=== PATIENT | male | born 1970 | race Caucasian/White ===

== ENCOUNTER 2020-08-04 09:00 | Inpatient (IN) | payer BC, SELFPAY ==
[2020-08-04 10:03] LABS: Absolute Lymphocytes (CBC) 1.2 K/uL (0.7-4.9); Basophils % 0.2 % (0-1.3); Hematocrit 48.2 % (39.6-49.0); Lymphocytes % 10.4 % (15.3-44.8); MPV 7.9 fL (7.6-11.3); RBC Red Blood Cell Count 5.68 M/uL (4.33-5.43)
[2020-08-04 10:13] LABS: Protime INR 1.08
--- NOTE | 2020-08-04 10:17 | RAD REPORT ---
EXAM DESCRIPTION: RAD - Chest Single View - 08/04/2020 9:57 am CLINICAL HISTORY: DYSPNEA Chest pain. COMPARISON: No comparisons FINDINGS: Portable technique limits examination quality. Mild bilateral interstitial lung opacities are present which may represent bronchitis/infection or mi ld pulmonary edema. The heart is upper limit of normal in size. No displaced fractures.
[2020-08-04 10:42] LABS: ALT/SGPT 88 U/L (12-78); AST/SGOT 56 U/L (15-37); Albumin 3.2 g/dL (3.4-5.0); Alkaline Phosphatase 48 U/L (45-117); BUN Blood Urea Nitrogen 19 mg/dL (7-18); Bicarbonate 27 mmol/L (21-32); Bilirubin Direct 0.2 mg/dL (0-0.2); Bilirubin Total 0.8 mg/dL (0.2-1.0); Ferritin 2168.2 ng/mL (26-388); Glucose Level 108 mg/dL (74-106); Lipase 139 U/L (73-393); Protein, Total 8.2 g/dL (6.4-8.2); Sodium Level 133 mmol/L (136-145); Troponin (Emerg Dept Use Only) < 0.02 ng/mL (0.0-0.045)
--- NOTE | 2020-08-04 11:19 | RAD REPORT ---
EXAM DESCRIPTION: CT - Chest For Pe Angio - 08/04/2020 10:58 am CLINICAL HISTORY: Chest pain. DYSPNEA COMPARISON: Chest Single View dated 08/04/2020 TECHNIQUE: CT angiogram of the pulmonary arteries was performed with MIP. All CT scans are performed using dose optimization technique as appropriate and may include automated exposure control or mA/KV adjustment according to patient size. FINDINGS: No evidence of pulmonary thromboembolism. No acute aortic finding demonstrated. Moderate interstitial and alveolar lung opacities are present, slightly greater on the right. This fi ndings appear most prominent in the lower lobes and periphery of the lungs. No significant pericardial or pleural fluid. No concerning bony finding. IMPRESSION: No evidence of pulmonary thromboembolism. Moderate interstitial and alveolar lung opacities are present as detailed. The findings are compatibl e with COVID-19 infection.
--- NOTE | 2020-08-04 11:53 | EDPHYS ---
Physician Documentation [facility] Name: Pritesh Flood Age: 50 yrs Sex: Male : 1970 Arrival Date: 08/04/2020 Time: 09:03 Bed 17 Private MD: ED Physician Hema Dodge HPI: 08/04 11:50 This 50 yrs old Male presents to ER via Ambulatory with complaints of kb Shortness Of Breath. 11:50 The patient has shortness of breath at rest, with light activity. Onset: The kb symptoms/episode began/occurred 1 week(s) ago, and became worse. Duration: The symptoms are continuous. The patient's shortness of breath is aggravated by exertion, is alleviated by nothing. Associated signs and symptoms: Pertinent positives: non-productive cough. Severity of symptoms: At their worst the symptoms were moderate in the emergency department the symptoms are unchanged. The patient has not experienced similar symptoms in the past. The patient has been recently seen by a physician: the patient's primary care provider. Pt was diagnosed with covid on 07/28 and completed a course of steroids and zithromax. States shortness of breath has gotten worse, especially on exertion. . Historical: - Allergies: 09:13 PENICILLINS; iw - Home Meds: 09:13 inhaler [Active]; iw - PMHx: 09:13 Asthma; iw - PSHx: 09:13 bunion; iw - Immunization history:: Adult Immunizations not up to date, Client reports having NOT received the Covid vaccine. - Social history:: Smoking status: Patient denies any tobacco usage or history of. ROS: 11:48 Abdomen/GI: Negative for abdominal pain, nausea, vomiting, diarrhea, and constipation. kb 11:48 Constitutional: Positive for body aches, chills, fatigue, malaise. 11:48 Respiratory: Positive for cough, dyspnea on exertion, shortness of breath. 11:48 All other systems are negative. Exam: 11:48 Constitutional: This is a well developed, well nourished patient who is awake, alert, kb and in no acute distress. Head/Face: Normocephalic, atraumatic. ENT: Moist Mucous membranes Cardiovascular: Regular rate and rhythm with a normal S1 and S2. No gallops, murmurs, or rubs. No pulse deficits. Respiratory: Respirations even and unlabored. No increased work of breathing, no retractions or nasal flaring. Abdomen/GI: Soft, non-tender. No distention Skin: Warm, dry with normal turgor. Normal color. MS/ Extremity: Pulses equal, no cyanosis. Neurovascular intact. Full, normal range of motion. Neuro: Awake and alert, GCS 15, oriented to person, place, time, and situation. Moves all extremities. Normal gait. Psych: Awake, alert, with orientation to person, place and time. Behavior, mood, and affect are within normal limits. Vital Signs: 09:09 BP 117 / 71; Pulse 70; Resp 18 S; Temp 96.3; Pulse Ox 86% on R/A; Weight 86.18 kg; iw Height 5 ft. 6 in. (167.64 cm); 09:55 Pulse 65; Resp 19 S; Pulse Ox 96% on 3 lpm NC; jd3 12:01 Pulse 62; Resp 18 S; Pulse Ox 98% on 2 lpm NC; jd3 13:09 BP 116 / 69; Pulse 61; Resp 18 S; Temp 97.3(TE); Pulse Ox 96% on 2 lpm NC; jd3 09:09 Body Mass Index 30.67 (86.18 kg, 167.64 cm) iw MDM: 09:15 Patient medically screened. kb 11:47 Data reviewed: vital signs, nurses notes. Data interpreted: Pulse oximetry: on room air kb is 86 %. Interpretation: hypoxia. Plan: O2 by NC applied. 11:51 Counseling: I had a detailed discussion with the patient and/or guardian regarding: the kb historical points, exam findings, and any diagnostic results supporting the discharge/admit diagnosis, lab results, radiology results, the need for further work-up and treatment in the hospital. Physician consultation: Modesta Burton MD was contacted at 11:51, regarding admission, to the telemetry unit. patient's condition, and will see patient in ED. 08/04 09:25 Order name: Blood Culture Adult (2) kb 08/04 09:25 Order name: BMP kb 08/04 09:25 Order name: C-Reactive Protein kb 08/04 09:25 Order name: CBC with Diff kb 08/04 09:25 Order name: D-Dimer kb 08/04 09:25 Order name: Ferritin kb 08/04 09:25 Order name: Lactate kb 08/04 09:25 Order name: LFT's kb 08/04 09:25 Order name: Lipase; Complete Time: 10:43 kb 08/04 09:25 Order name: Procalcitonin; Complete Time: 10:32 kb 08/04 09:25 Order name: PT-INR; Complete Time: 10:17 kb 08/04 09:25 Order name: Ptt, Activated; Complete Time: 10:17 kb 08/04 09:25 Order name: Troponin (emerg Dept Use Only); Complete Time: 10:43 kb 08/04 09:25 Order name: Blood Culture EDMS 08/04 09:25 Order name: CXR XRAY; Complete Time: 10:18 kb 08/04 09:25 Order name: EKG; Complete Time: 09:26 kb 08/04 09:25 Order name: Cardiac monitoring; Complete Time: 09:29 kb 08/04 09:25 Order name: Droplet/Contact Precautions; Complete Time: 09:29 kb 08/04 09:25 Order name: EKG - Nurse/Tech; Complete Time: 10:01 kb 08/04 09:25 Order name: Basic Metabolic Panel; Complete Time: 10:43 EDMS 08/04 09:25 Order name: C-Reactive Protein; Complete Time: 10:43 EDMS 08/04 09:25 Order name: CBC with Automated Diff; Complete Time: 10:17 EDMS 08/04 09:25 Order name: D-Dimer; Complete Time: 10:17 EDMS 08/04 09:25 Order name: Ferritin; Complete Time: 10:43 EDMS 08/04 09:25 Order name: Lactate; Complete Time: 10:17 EDMS 08/04 09:25 Order name: Liver (Hepatic) Function; Complete Time: 10:43 EDMS 08/04 10:16 Order name: CT Chest For PE Angio; Complete Time: 11:27 kb 08/04 12:26 Order name: C-Reactive Protein EDMS 08/04 12:26 Order name: C-Reactive Protein EDMS 08/04 12:26 Order name: C-Reactive Protein EDMS 08/04 09:25 Order name: IV Start; Complete Time: 09:29 kb 08/04 09:25 Order name: Labs collected and sent; Complete Time: 09:54 kb 08/04 09:25 Order name: O2 Per Protocol; Complete Time: 09:29 kb 08/04 09:25 Order name: O2 Sat Monitoring; Complete Time: :29 kb Administered Medications: No medications were administered Disposition: 08/05 07:12 Co-signature as Attending Physician, Hema Dodge MD I agree with the assessment and savanah plan of care. Disposition: 08/04/20 11:52 Hospitalization ordered by Modesta Burton for Inpatient Admission. Preliminary diagnosis are Hypoxia, Coronavirus infection, unspecified, Viral pneumonia, unspecified. - Bed requested for Intensive Care Unit. - Status is Inpatient Admission. jd3 - Condition is Stable. - Problem is new. - Symptoms are unchanged. Signatures: Dispatcher [employer] Ngozi Reyes FNP-C FNP-Floridalma Pacheco Corey, MD MD cha Williams, Irene, [place] RN iw Dao Quintana RN RN jd3 Corrections: (The following items were deleted from the chart) 08/04 11:52 11:52 Hospitalization Ordered by Modesta Burton MD for Inpatient Admission. Preliminary kb diagnosis is Hypoxia; Coronavirus infection, unspecified. Bed requested for Telemetry/MedSurg (Inpatient). Status is Inpatient Admission. Condition is Stable. Problem is new. Symptoms are unchanged. kb 13:06 11:52 08/04/2020 11:52 Hospitalization Ordered by Modesta Burton MD for Inpatient bd Admission. Preliminary diagnosis is Hypoxia; Coronavirus infection, unspecified; Viral pneumonia, unspecified. Bed requested for Telemetry/MedSurg (Inpatient). Status is Inpatient Admission. Condition is Stable. Problem is new. Symptoms are unchanged. kb 13:36 13:06 08/04/2020 11:52 Hospitalization Ordered by Modesta Burton MD for Inpatient jd3 Admission. Preliminary diagnosis is Hypoxia; Coronavirus infection, unspecified; Viral pneumonia, unspecified. Bed requested for Intensive Care Unit. Status is Inpatient Admission. Condition is Stable. Problem is new. Symptoms are unchanged. bd
--- NOTE | 2020-08-04 11:53 | ER ---
Nurse's Notes [facility] Name: Pritesh Flood Age: 50 yrs Sex: Male : 1970 Arrival Date: 08/04/2020 Time: 09:03 Bed 17 Private MD: Diagnosis: Hypoxia;Coronavirus infection, unspecified;Viral pneumonia, unspecified Presentation: 08/04 09:09 Chief complaint: Patient states: SOB since last week, COVID+ since 6-7, symptoms iw started on 6-7, finished a Z-pack and prednisone. Coronavirus screen: Client presents with at least one sign or symptom that may indicate coronavirus-19. Client reports previous positive COVID test result. Ebola Screen: Patient negative for fever greater than or equal to 101.5 degrees Fahrenheit, and additional compatible Ebola Virus Disease symptoms Patient denies exposure to infectious person. Patient denies travel to an Ebola-affected area in the 21 days before illness onset. No symptoms or risks identified at this time. Initial Sepsis Screen: Does the patient meet any 2 criteria? No. Patient's initial sepsis screen is negative. Does the patient have a suspected source of infection? No. Patient's initial sepsis screen is negative. Risk Assessment: Do you want to hurt yourself or someone else? Patient reports no desire to harm self or others. Onset of symptoms was July 28, 2020. 09:09 Method Of Arrival: Ambulatory iw 09:09 Acuity: AMIRA 3 iw Triage Assessment: 09:58 Respiratory: Onset: The symptoms/episode began/occurred gradually, the patient has jd3 moderate shortness of breath. Historical: - Allergies: 09:13 PENICILLINS; iw - Home Meds: 09:13 inhaler [Active]; iw - PMHx: 09:13 Asthma; iw - PSHx: 09:13 bunion; iw - Immunization history:: Adult Immunizations not up to date, Client reports having NOT received the Covid vaccine. - Social history:: Smoking status: Patient denies any tobacco usage or history of. Screenin:57 Abuse screen: Denies threats or abuse. Nutritional screening: No deficits noted. jd3 Tuberculosis screening: No symptoms or risk factors identified. Fall Risk Ambulatory Aid- None/Bed Rest/Nurse Assist (0 pts). Gait- Normal/Bed Rest/Wheelchair (0 pts) Mental Status- Oriented to own ability (0 pts). Total Navarro Fall Scale indicates No Risk (0-24 pts). Assessment: 09:56 General: Appears in no apparent distress. uncomfortable, Behavior is calm, cooperative, jd3 appropriate for age. Pain: Complains of pain in head Quality of pain is described as aching. Neuro: Level of Consciousness is awake, alert, obeys commands, Oriented to person, place, time, situation. Cardiovascular: Capillary refill < 3 seconds Patient's skin is warm and dry. Rhythm is regular. Respiratory: Reports shortness of breath at rest cough that is persistent Airway is patent Respiratory effort is even, unlabored, Respiratory pattern is regular, symmetrical, Breath sounds are clear. GI: Abdomen is round non-distended, Reports diarrhea, Patient currently denies abdominal pain. : No signs and/or symptoms were reported regarding the genitourinary system. EENT: No signs and/or symptoms were reported regarding the EENT system. Derm: Skin is intact, Skin is dry, Skin is normal, Skin temperature is warm. Musculoskeletal: Circulation, motion, and sensation intact. Range of motion: intact in all extremities. 10:57 Reassessment: Patient appears in no apparent distress at this time. Patient and/or jd3 family updated on plan of care and expected duration. Pain level reassessed. Patient is alert, oriented x 3, equal unlabored respirations, skin warm/dry/pink. pt reports feeling better with the nasal canula. Patient states feeling better. 11:55 Reassessment: Patient appears in no apparent distress at this time. No changes from jd3 previously documented assessment. Patient and/or family updated on plan of care and expected duration. Pain level reassessed. Patient is alert, oriented x 3, equal unlabored respirations, skin warm/dry/pink. 13:10 Reassessment: Patient appears in no apparent distress at this time. Patient and/or jd3 family updated on plan of care and expected duration. Pain level reassessed. Patient is alert, oriented x 3, equal unlabored respirations, skin warm/dry/pink. Vital Signs: 09:09 BP 117 / 71; Pulse 70; Resp 18 S; Temp 96.3; Pulse Ox 86% on R/A; Weight 86.18 kg; iw Height 5 ft. 6 in. (167.64 cm); 09:55 Pulse 65; Resp 19 S; Pulse Ox 96% on 3 lpm NC; jd3 12:01 Pulse 62; Resp 18 S; Pulse Ox 98% on 2 lpm NC; jd3 13:09 BP 116 / 69; Pulse 61; Resp 18 S; Temp 97.3(TE); Pulse Ox 96% on 2 lpm NC; jd3 09:09 Body Mass Index 30.67 (86.18 kg, 167.64 cm) iw ED Course: 09:03 Patient arrived in ED. ds1 09:11 Triage completed. iw 09:12 Ngozi Veronica [facility]C [facility]. kb 09:12 Hema Dodge MD is Attending Physician. kb 09:12 Arm band placed on. iw 09:25 Dao Quintana, RN is Primary Nurse. jd3 09:56 CXR XRAY In Process Unspecified. EDMS 09:58 Patient has correct armband on for positive identification. Bed in low position. Call jd3 light in reach. Side rails up X 1. Adult w/ patient. lunchroom monitor on. Pulse ox on. NIBP on. 10:01 Inserted saline lock: 20 gauge in right antecubital area, using aseptic technique. jd3 Blood collected. 10:58 CT Chest For PE Angio In Process Unspecified. EDMS 11:51 Modesta Burton MD is Hospitalizing Provider. kb 13:35 No provider procedures requiring assistance completed. Patient admitted, IV remains in jd3 place. Administered Medications: No medications were administered Outcome: 11:52 Decision to Hospitalize by Provider. kb 13:35 Admitted to ICU accompanied by tech, via wheelchair, room 2, with oxygen, with chart, jd3 Report called to Denise FIGUEROA 13:35 Condition: stable 13:35 Instructed on the need for admit, Demonstrated understanding of instructions. 13:36 Patient left the ED. jd3 Signatures: Dispatcher [employer] EDMS Ngozi Veronica FNP-C FNP-Paula Genao ds1 Paz Pope, RN RN iw Dao Quintana, [place] RN jd3 Corrections: (The following items were deleted from the chart) 09:12 09:09 Chief complaint: Patient states: SOB since last week, COVID+ since 6-7, symptoms iw started on 6-7 iw 09:12 09:09 BP 117 / 71; Pulse 70bpm; Resp 18bpm; Spontaneous; Pulse Ox 87% RA; Temp 96.3F; iw 86.18 kg; Height 5 ft. 6 in.; BMI: 30.6; iw 12:03 10:57 Reassessment: Patient appears in no apparent distress at this time. No changes jd3 from previously documented assessment. Patient and/or family updated on plan of care and expected duration. Pain level reassessed. Patient is alert, oriented x 3, equal unlabored respirations, skin warm/dry/pink. jd3 13:20 13:09 BP 116 / 69; Pulse 61bpm; Resp 18bpm; Spontaneous; Pulse Ox 96% 2 lpm Nasal jd3 Cannula; jd3
[2020-08-04] MEDS ORDERED: ALBUTEROL INHALER 60 PUFF/8 GM IH PRN (12:21)
[2020-08-04] MEDS: PANTOPRAZOLE 40MG TABLET PO SCH (17:30)
[2020-08-04] MEDS: METHYLPREDNISOLONE 125 MG INJ IV SCH (20:55)
[2020-08-04] MEDS: APIXABAN 5 MG TABLET PO SCH (20:55)
[2020-08-05 04:36] LABS: Basophils % 0.7 % (0-1.3); Hematocrit 43.5 % (39.6-49.0); Lymphocytes % 10.8 % (15.3-44.8); MPV 7.6 fL (7.6-11.3); RBC Red Blood Cell Count 5.18 M/uL (4.33-5.43)
[2020-08-05 05:45] LABS: C-Reactive Protein 47.5 mg/L (<3.00); Ferritin 1774.7 ng/mL (26-388)
[2020-08-05] MEDS: APIXABAN 5 MG TABLET PO SCH ×2 (08:27→20:41)
[2020-08-05] MEDS: PANTOPRAZOLE 40MG TABLET PO SCH ×2 (08:28→16:45)
[2020-08-05] MEDS: METHYLPREDNISOLONE 125 MG INJ IV SCH ×2 (09:45→20:41)
--- NOTE | 2020-08-05 12:29 | P.CNS ---
Date of Consult: 08/05/20 Reason for Consult: Respiratory failure from aguero virus Chief Complaint: Shortness of breath History of Present Illness: Patient is 50 years of age she was diagnosed with aguero virus about a week ago failed outpatient therapy with steroids and antibiotics came in progressive shortness of breath hypoxemia currently he is on oxygen feeling a little better Allergies Penicillins Allergy (Verified 08/04/20 13:21) UNK Home Medications: NK [No Home Meds] 08/04/20 - Past Medical/Surgical History Diabetic: No -: Asthma -: [place] Removal to left foot - Social History Alcohol use: No CD- Drugs: No Caffeine use: Yes Place of Residence: Home Review of Systems General: Weakness Respiratory: Cough, Shortness of Breath Physical Examination Temp Pulse Resp BP Pulse Ox 97.1 F 57 23 H 99/67 94 08/05/20 04:00 08/05/20 04:00 08/05/20 04:00 08/05/20 04:00 08/05/20 04:00 - Problems (1) Acute respiratory failure due to severe acute respiratory syndrome coronavirus 2 (SARS-CoV-2) infection Current Visit: Yes Status: Acute Plan: Patient is 50 years of age admitted with respiratory failure from aguero virus labs reviewed ferritin is very elevated currently oxygen satisfactory on 6 L of nasal cannula ox CT scan shows bilateral pneumonia abnormal liver function tests will hold off onRemdesmir ferritin level is in the thousands history of asthma jadyn Colon
--- NOTE | 2020-08-05 12:36 | P.HP ---
Certification for Inpatient Patient admitted to: Inpatient With expected LOS: >2 Midnights Patient will require the following post-hospital care: None Practitioner: I am a practitioner with admitting privileges, knowledge of patient current condition, hospital course, and medical plan of care. Services: Services provided to patient in accordance with Admission requirements found in Title 42 Section 412.3 of the Code of Federal Regulations Patient History Date of Service: 08/04/20 Reason for admission: Shortness of breath History of Present Illness: Patient is a 50-year-old gentleman who came to the hospital with difficulty breathing. Patient and his were diagnose with COVID-19 pneumonia about a week ago. He states on Tuesday with her official diagnosis. They had felt bad for a couple of days prior to this. He had been doing okay until a couple of days ago when he noticed he was more and more tachypneic. He decided come in today if for further evaluation. He was hypoxic and decision was made to admit to the hospital for further evaluation. Patient was placed on 5 L oxygen. We started patient on neb treatments. We have to go through pulmonary in nor to get antiviral therapy started. Await for Pulmonary evaluation. Patient would benefit from antiviral therapy as patient is hypoxic. Continue on IV steroids. Continue on inhaler therapy as needed. Cough medication as well. Patient has history of asthma and uses an albuterol inhaler at home as needed. Allergies Penicillins Allergy (Verified 08/04/20 13:21) UNK Home Medications: NK [No Home Meds] 08/04/20 - Past Medical/Surgical History Diabetic: No -: Asthma -: Bunion Removal to left foot - Family History Father Family History: Reviewed- Non-Contributory - Social History Smoking Status: Never smoker Alcohol use: No CD- Drugs: No Caffeine use: Yes Place of Residence: Home Review of Systems 10-point ROS is otherwise unremarkable Physical Examination - Vital Signs Temperature: 97.1 F Blood Pressure: 99/67 Pulse: 57 Respirations: 23 Pulse Ox (%): 94 - Physical Exam General: Alert, In no apparent distress, Oriented x3 HEENT: Atraumatic, Normocephalic Neck: Supple, 2+ carotid pulse no bruit, JVD not distended, No Thyromegaly Respiratory: Rhonchi/gurgles Cardiovascular: Regular rate/rhythm, Normal S1 S2, Systolic murmur Gastrointestinal: Normal bowel sounds, Soft and benign, Non-distended Musculoskeletal: No clubbing Integumentary: No rashes Neurological: Normal gait, Normal speech, Normal strength at 5/5 x4 extr, Normal tone, Sensation intact, Cranial nerves 3-12 intact Assessment & Plan - Problems (Diagnosis) (1) Asthma Current Visit: Yes Status: Acute (2) Acute respiratory failure due to severe acute respiratory syndrome coronavirus 2 (SARS-CoV-2) infection Current Visit: Yes Status: Acute - Plan 1. Continue with IV steroids an would start antiviral therapy as well 2. Monitor inflammatory markers 3. Repeat chest x-ray is symptoms are progressively worsening 4. O2 per protocol 5. Pulmonary consultation 6. Continue with albuterol inhaler therapy; also supportive care 7. Monitor LFTs 8. GI and DVT prophylaxis Discharge Plan: Home Plan to discharge in: Greater than 2 days - Advance Directives Does patient have a Living Will: No Does patient have a Durable POA for Healthcare: No - Code Status/Comfort Care Code Status Assessed: Yes Code Status: Full Code Critical Care: No Time Spent Managing PTS Care (In Minutes): 35
--- NOTE | 2020-08-05 12:38 | P.PN ---
Subjective Date of Service: 08/05/20 The patient states he feels better. Patient remains on AIRVO. Started on remdesivir today Review of Systems 10-point ROS is otherwise unremarkable Physical Examination - Vital Signs Temperature: 97.1 F Blood Pressure: 99/67 Pulse: 57 Respirations: 23 Pulse Ox (%): 94 - Physical Exam General: Alert, In no apparent distress, Oriented x3 Respiratory: Diminished Cardiovascular: Regular rate/rhythm, Normal S1 S2, No murmurs Gastrointestinal: Normal bowel sounds, Soft and benign, Non-distended, No tenderness Musculoskeletal: No clubbing, No swelling, No tenderness Neurological: Normal tone, Sensation intact, Cranial nerves 3-12 intact, Normal affect - Studies Medications List Reviewed: Yes Assessment & Plan - Problems (Diagnosis) (1) Acute respiratory failure due to severe acute respiratory syndrome coronavirus 2 (SARS-CoV-2) infection Current Visit: Yes Status: Acute (2) Asthma Current Visit: Yes Status: Acute Qualifiers: Asthma severity: moderate Asthma complication type: with acute exacerbation - Plan 1. Continue with IV steroids and started antiviral therapy as well 2. Continue to monitor inflammatory markers which are improving 3. Repeat chest x-ray is pending 4. Continue to weaning down AIRVO 5. Pulmonary consultation appreciated 6. Continue with albuterol inhaler therapy; also supportive care 7. Monitor LFTs 8. GI and DVT prophylaxis Discharge Plan: Home Plan to discharge in: Greater than 2 days - Advance Directives Does patient have a Living Will: No Does patient have a Durable POA for Healthcare: No - Code Status/Comfort Care Code Status: Full Code Critical Care: No Time Spent Managing PTS Care (In Minutes): 35
[2020-08-05] MEDS: IVERMECTIN 3 MG TABLET PO SCH (12:41)
[2020-08-05] MEDS ORDERED: REMDESIVIR (EUA) 200 MG in NA CHLORIDE 0.9% 250 ML IV ONE (14:00)
[2020-08-05] MEDS: DULERA 200/5 (MOMETASONE/FORMOTEROL) INHALER IH SCH (20:44)
[2020-08-06 05:24] LABS: Absolute Lymphocytes (CBC) 1.1 K/uL (0.7-4.9); Basophils % 0.2 % (0-1.3); Hematocrit 42.3 % (39.6-49.0); Lymphocytes % 7.5 % (15.3-44.8); MPV 7.6 fL (7.6-11.3); RBC Red Blood Cell Count 5.03 M/uL (4.33-5.43)
[2020-08-06 05:57] LABS: C-Reactive Protein 24.7 mg/L (<3.00); Ferritin 1479.7 ng/mL (26-388); Potassium 4.7 mmol/L (3.5-5.1)
[2020-08-06 06:49] LABS: Blood Morphology Comment NOT SEEN (NOT SEEN); Platelet Estimate ADEQ
--- NOTE | 2020-08-06 07:09 | RAD REPORT ---
EXAM DESCRIPTION: [place] Single View08/06/2020 6:00 am CLINICAL HISTORY: Chest pain COMPARISON: August 04, 2020 FINDINGS: [id number] bilateral pulmonary opacities unchanged The The heart is normal size IMPRESSION: No change in the [id number] bilateral pneumonia
[2020-08-06] MEDS: DULERA 200/5 (MOMETASONE/FORMOTEROL) INHALER IH SCH ×2 (08:32→20:10)
[2020-08-06] MEDS: APIXABAN 5 MG TABLET PO SCH ×2 (08:33→20:10)
[2020-08-06] MEDS: METHYLPREDNISOLONE 125 MG INJ IV SCH ×2 (08:33→20:10)
[2020-08-06] MEDS: PANTOPRAZOLE 40MG TABLET PO SCH ×2 (08:33→16:24)
--- NOTE | 2020-08-06 09:18 | P.PN ---
Date of Service: 08/06/20 Subjective Patient clinically improving. Remains on 50% FiO2. Patient remains on high- flow oxygen. Hopefully we can continue wean down to nasal cannula. Patient on day 2 of remdesivir Review of Systems 10-point ROS is otherwise unremarkable Physical Examination - Vital Signs Reviewed - Physical Exam General: Alert, In no apparent distress, Oriented x3 Respiratory: Diminished Cardiovascular: Regular rate/rhythm, Normal S1 S2, No murmurs Gastrointestinal: Normal bowel sounds, Soft and benign, Non-distended, No tenderness Musculoskeletal: No clubbing, No swelling, No tenderness Neurological: Normal tone, Sensation intact, Cranial nerves 3-12 intact, Normal affect Assessment & Plan - Problems (Diagnosis) (1) Acute respiratory failure due to severe acute respiratory syndrome coronavirus 2 (SARS-CoV-2) infection Current Visit: Yes Status: Acute (2) Asthma Current Visit: Yes Status: Acute Qualifiers: Asthma severity: moderate Asthma complication type: with acute exacerbation - Plan Continue with plan of care as mentioned below: 1. Continue with IV steroids and started antiviral therapy as well; started on Remdesivir day #2 2. Continue to monitor inflammatory markers which are improving 3. Repeat chest x-ray is pending 4. Continue to weaning down AIRVO 5. Pulmonary consultation appreciated 6. Continue with albuterol inhaler therapy; also supportive care 7. Monitor LFTs 8. GI and DVT prophylaxis
[2020-08-06] MEDS: REMDESIVIR (EUA) 100 MG in NA CHLORIDE 0.9% 250 ML IV SCH (09:25)
[2020-08-06] MEDS: BENZONATATE 100 MG CAP PO PRN (20:09)
[2020-08-07 05:38] LABS: Absolute Lymphocytes (CBC) 0.9 K/uL (0.7-4.9); Basophils % 0.2 % (0-1.3); Hematocrit 40.9 % (39.6-49.0); Lymphocytes % 5.1 % (15.3-44.8); MPV 7.5 fL (7.6-11.3); RBC Red Blood Cell Count 4.83 M/uL (4.33-5.43)
[2020-08-07 05:53] LABS: Potassium 4.8 mmol/L (3.5-5.1)
[2020-08-07 05:58] LABS: C-Reactive Protein 10.7 mg/L (<3.00); Ferritin 1415.6 ng/mL (26-388)
[2020-08-07] MEDS: METHYLPREDNISOLONE 125 MG INJ IV SCH ×2 (08:30→20:30)
[2020-08-07] MEDS: PANTOPRAZOLE 40MG TABLET PO SCH (08:32)
[2020-08-07] MEDS: APIXABAN 5 MG TABLET PO SCH ×2 (08:32→20:30)
--- NOTE | 2020-08-07 08:37 | P.PN ---
Subjective Date of Service: 08/07/20 Chief Complaint: Respiratory failure from aguero virus Subjective: Improving (Patient is steadily improving no new complaints oxygen requirements declining) Review of Systems General: Weakness Respiratory: Shortness of Breath Physical Examination - Vital Signs Temperature: 98.9 F Blood Pressure: 104/70 Pulse: 63 Respirations: 20 Pulse Ox (%): 95 - Studies Medications List Reviewed: Yes Assessment & Plan - Problems (Diagnosis) (1) Acute respiratory failure due to severe acute respiratory syndrome coronavirus 2 (SARS-CoV-2) infection Current Visit: Yes Status: Acute Plan: Respiratory failure patient is improving continue to wean down on the oxygen l abs and chemistries reviewed no change in present therapy range for home O2 change to nasal cannula oxygen if tolerated
[2020-08-07] MEDS: REMDESIVIR (EUA) 100 MG in NA CHLORIDE 0.9% 250 ML IV SCH (08:54)
[2020-08-07] MEDS: FAMOTIDINE 20 MG TAB PO SCH ×2 (09:00→20:30)
[2020-08-07] MEDS: DULERA 200/5 (MOMETASONE/FORMOTEROL) INHALER IH SCH ×2 (09:10→20:31)
[2020-08-07] MEDS: IVERMECTIN 3 MG TABLET PO SCH (13:52)
[2020-08-07] MEDS: BENZONATATE 100 MG CAP PO PRN (20:32)
--- NOTE | 2020-08-08 00:41 | P.PN ---
Date of Service: 08/07/20 Subjective Patient's oxygen decreased to 4 L nasal cannula. Maintain saturation in the low 90s. Finished a 3 of antiviral therapy. Continue with IV steroids. Arrange for home oxygen in the morning. Anticipate discharge on Tuesday. Review of Systems 10-point ROS is otherwise unremarkable Physical Examination - Vital Signs Reviewed - Physical Exam General: Alert, In no apparent distress, Oriented x3 Respiratory: Diminished Cardiovascular: Regular rate/rhythm, Normal S1 S2, No murmurs Gastrointestinal: Normal bowel sounds, Soft and benign, Non-distended, No tenderness Musculoskeletal: No clubbing, No swelling, No tenderness Neurological: Normal tone, Sensation intact, Cranial nerves 3-12 intact, Normal affect Assessment & Plan - Problems (Diagnosis) (1) Acute respiratory failure due to severe acute respiratory syndrome coronavirus 2 (SARS-CoV-2) infection Current Visit: Yes Status: Acute (2) Asthma Current Visit: Yes Status: Acute Qualifiers: Asthma severity: moderate Asthma complication type: with acute exacerbation - Plan Continue with plan of care as mentioned below: 1. Continue with IV steroids and started antiviral therapy as well; started on Remdesivir day #3 2. Continue to monitor inflammatory markers which are improving 3. Repeat chest x-ray with no significant changes 4. Continue to weaning down AIRVO to nasal cannula today 5. Pulmonary consultation appreciated 6. Continue with albuterol inhaler therapy; also supportive care 7. Monitor LFTs 8. GI and DVT prophylaxis
[2020-08-08 07:58] LABS: ALT/SGPT 79 U/L (12-78); AST/SGOT 27 U/L (15-37); BUN Blood Urea Nitrogen 18 mg/dL (7-18); Bicarbonate 26 mmol/L (21-32); C-Reactive Protein 7.56 mg/L (<3.00); Ferritin 1137.2 ng/mL (26-388); Glucose Level 155 mg/dL (74-106); Potassium 4.9 mmol/L (3.5-5.1); Sodium Level 135 mmol/L (136-145)
[2020-08-08] MEDS: BENZONATATE 100 MG CAP PO PRN ×2 (08:37→20:39)
[2020-08-08] MEDS: METHYLPREDNISOLONE 125 MG INJ IV SCH ×2 (08:37→20:39)
[2020-08-08] MEDS: APIXABAN 5 MG TABLET PO SCH ×2 (08:37→20:40)
[2020-08-08] MEDS: FAMOTIDINE 20 MG TAB PO SCH ×2 (08:37→20:40)
[2020-08-08] MEDS: DULERA 200/5 (MOMETASONE/FORMOTEROL) INHALER IH SCH ×2 (08:49→20:40)
[2020-08-08] MEDS: REMDESIVIR (EUA) 100 MG in NA CHLORIDE 0.9% 250 ML IV SCH (09:31)
--- NOTE | 2020-08-08 11:50 | P.PN ---
Subjective Date of Service: 08/08/20 Chief Complaint: Respiratory failure from aguero virus Subjective: Improving (Patient is doing much better currently on nasal cannula oxygen no new complaints) Review of Systems Respiratory: Shortness of Breath Physical Examination - Vital Signs Temperature: 97.4 F Blood Pressure: 118/78 Pulse: 69 Respirations: 20 Pulse Ox (%): 96 - Studies Medications List Reviewed: Yes Assessment & Plan - Problems (Diagnosis) (1) Acute respiratory failure due to severe acute respiratory syndrome coronavirus 2 (SARS-CoV-2) infection Current Visit: Yes Status: Acute Plan: Doing much better plan for discharge ferritin level still elevated recommend discharge home on prednisone 20 b.i.d. for a week then 10 b.i.d. telephone visit in a week home oxygen has been ordered vital stable
[2020-08-09 05:50] VITALS: BMI 29.1
[2020-08-09 05:57] LABS: Basophils % 0.4 % (0-1.3); Hematocrit 43.1 % (39.6-49.0); Lymphocytes % 5.2 % (15.3-44.8); MPV 7.6 fL (7.6-11.3); RBC Red Blood Cell Count 5.13 M/uL (4.33-5.43)
[2020-08-09 06:08] LABS: ALT/SGPT 79 U/L (12-78); AST/SGOT 27 U/L (15-37); BUN Blood Urea Nitrogen 18 mg/dL (7-18); Bicarbonate 24 mmol/L (21-32); Glucose Level 148 mg/dL (74-106); Potassium 4.8 mmol/L (3.5-5.1); Sodium Level 135 mmol/L (136-145)
[2020-08-09] MEDS: APIXABAN 5 MG TABLET PO SCH (08:30)
[2020-08-09] MEDS: FAMOTIDINE 20 MG TAB PO SCH (08:30)
[2020-08-09] MEDS: REMDESIVIR (EUA) 100 MG in NA CHLORIDE 0.9% 250 ML IV SCH (08:30)
[2020-08-09] MEDS: DULERA 200/5 (MOMETASONE/FORMOTEROL) INHALER IH SCH (08:30)
[2020-08-09] MEDS: METHYLPREDNISOLONE 125 MG INJ IV SCH (08:30)
[2020-08-09 08:43] VITALS: TEMP 97.6
[2020-08-09 09:02] VITALS: O2SAT 93
[2020-08-09 11:44] VITALS: BP 103/67
== END 2020-08-09 12:15 | disposition home or self-care (01) | DRG 177 ==
LOC: ER 09:00 → ERHOLD 12:50 → 3RD-ICU 13:26
PROVIDERS: ADMIT Hospitalist; ATTEND Hospitalist
DX: U07.1 COVID-19 (principal); J80 Acute respiratory distress syndrome; J45.41 Moderate persistent asthma with (acute) exacerbation
CPT/HCPCS: 36415; 71045; 71275; 80048; 80076; 82728; 83605; 83690; 84145; 84450; 84460; 84484; 85025; 85379; 85610; 85730; 86140; 87040; 93005; 94002; 94003; 94010; 99285; J2930; J7050; J7606; Q9967